=== PATIENT | male | born 1990 | race Caucasian/White ===

== ENCOUNTER 2023-06-05 03:01 | Emergency (ER) | payer OTHER, SELFPAY ==
[2023-06-05] VITALS (7 sets, daily range): BP systolic 127–139; BP diastolic 77–87; BMI 25.4
--- NOTE | 2023-06-05 04:16 | ED.GENMED ---
Addendum entered and electronically signed by Jimmy Vital DO 06/05/23 17:04:
Patient does not want to stay and would prefer to go to another hospital. Patient understands the serious nests of this wound and that it could lead to infection spreading into his pelvis and intestines. Patient is cooperative but would prefer to
go elsewhere. Patient will be discharged on antibiotics.
Original Note:
History of Present Illness
General
Chief Complaint: Male Genito-Urinary Symptoms
Source: patient
Exam Limitations: none
Time Seen by Provider: 06/05/23 03:59
Nursing documentation reviewed up to this point in time: agreed with
Travel History
Have you had any contact with someone who has COVID-19?: No
Do you have any symptoms of coronavirus? Fever > 100 degrees, chills, cough, shortness of breath, sore throat, loss of taste or smell, muscle aches, or headache?: No
History of Present Illness
History of Present Illness:
The patient is a 32-year-old man with a past medical history of IV drug use who denies active IV drug use who reports multiple abscesses on his scrotum. Patient reports that he noticed them 3 days ago. He reports that the 2 that have popped up are
already draining. He reports he is not sure if another one is forming in his left testicle. He denies fevers and chills. He reports minimal pain. He reports he has had a history of an abscess in the past. He denies any penile discharge or
bleeding.
Past History
Past History
ED Past Medical History: Other (Abscess in past)
ED Past Surgical History: Other
Social History
Tobacco: Smoker
Alcohol: None
Drug: Former user
Personal: Other
Living: other
Employment: Other
Family History
Family History: Other
Review of Systems
Review of Systems
Allergies reviewed?: Yes
All Other Systems: ROS reviewed and negative except as documented in HPI and ROS
Constitutional: Reports no symptoms
EENT: Reports no symptoms
Respiratory: Reports no symptoms
Cardiac: Reports no symptoms
ABD/GI: Reports no symptoms
: Reports other
Musculoskeletal: Reports no symptoms
Skin: Reports other
Neurological: Reports no symptoms
Endocrine: Reports no symptoms
Hematologic/Lymphatic: Reports no symptoms
Psychiatric: Reports no symptoms
Phy Exam
Physical Exam
Physical Exam:
Physical Exam
General: no apparent distress, not acutely ill, nontoxic
Neck: supple.
Heart: s1/s2 regular rate and rhythm, no murmur. equal radial pulses.
Lungs: no acute respiratory distress. clear bilaterally
Abdomen: normal bowel sounds. not tender. no CVAT
Neuro: alert and oriented. no focal neurological deficits
Skin: 1.5 cm abscess superior pole of left testicle. Draining abscess posterior left testicle. Scrotum is erythematous and warm to the touch. Appears swollen
Psychiatric: well kept. interactive and cooperative
Extremities: no edema. no calf tenderness. negative homans. good distal pulses
Course
Orders/Labs/Results
Orders:
Orders
06/05/23 04:15
US Scrotum Urgent
Comment:
Reason For Exam: abscess
06/05/23 04:21
Complete Blood Count/With Diff Urgent
Comprehensive Metabolic Panel Urgent
Wound Culture [Wound/Abscess/Other Culture] Urgent
LAURENCE Source: Abscess
Specimen Description:
Date Specimen was Collected: 06/05/23
Time Specimen was Collected: 04:19
Comment: scrotum
06/05/23 06:23
Vancomycin [Vancocin] 2,000 mg 0.9% Sodium Chloride 500 ml [Nss] 500 ml IV NOW
Abnormal Lab Results
06/05/23
04:21
WBC 11.7 H 10^3/uL
(4.8-10.8)
RBC 4.00 L 10^6/uL
(4.70-6.10)
Hgb 12.0 L g/dL
(13.0-18.0)
Hct 34.9 L %
(39.0-52.0)
Absolute Neuts (auto) 8.1 H 10^3/uL
(1.4-6.5)
Absolute Monos (auto) 0.7 H 10^3/uL
(0.1-0.6)
Carbon Dioxide 31 H mmol/L
(22-30)
Creatinine 0.6 L mg/dL
(0.7-1.3)
Glucose 107 H mg/dl
(70-99)
06/05/23 04:21
06/05/23 04:21
Vital Signs
Initial and Last Documented VS:
Initial Vital Signs
Temp Pulse Resp BP Pulse Ox
98.5 F 94 16 127/87 100
06/05/23 03:06 06/05/23 03:06 06/05/23 03:06 06/05/23 03:06 06/05/23 03:06
Last Documented Vital Signs
Temp Pulse Resp BP Pulse Ox
98.5 F 94 16 129/85 98
06/05/23 03:06 06/05/23 03:06 06/05/23 03:06 06/05/23 06:15 06/05/23 05:13
MDM/Problems Addressed
Differential Diagnosis Includes:
Testicle abscesses, testicle cellulitis, deep space infection
MDM/Problems Addressed:
Patient presents with acute abscesses of left testicle
Chronic conditions affecting care:
Given patient has a history of IV drug use in the past he is at increased risk of MRSA infection
*Radiology
Radiology exam reviewed: radiology read reviewed
*Pulse Oximetry
Patient hypoxic: no
*EKG
Interpreted by ED Provider?: NA
*Fryer Line Helper Interpretation
Rate: Fryer Line Helper- N/A
*Critical Care Note
Total Time (30-74mins, 75-104mins- exclusive of procedures): Not Applicable
Data Reviewed
Source: patient
Patient Management
Discussion with other providers: Hospitalist and Other (Dr Dunbar)
Escalation/DeEscalation of care consider admission/obs:
Given extensive swelling and erythema of scrotum, decision made to admit patient for IV antibiotics. Dr. Dunbar from urology notified and agreed to evaluate the patient. He asked that patient please be n.p.o.
ED Attending Note
-
Portions of this chart may have been created with voice recognition software.� Occasional wrong word or��sound alike� substitutions may have occurred due to the inherent limitations of voice recognition software.
Discharge Plan
Departure
Patient Disposition: Admit
Date of Disposition: 06/05/23
Time of Disposition: 06:12
Admit to: Med/Surg
Presentation/result/management discussed w/ accepting MD/DO: Hospitalist
Patient with high blood pressure during this ER visit?: Yes
Condition: Good
Covid-19: Not Applicable
Discharge Problem:
Scrotal wall abscess, Cellulitis of scrotum
Prescriptions:
No Action
No Current Medications
0
Referrals:
NONE,* [Family Provider] -
Interventions
Interventions:
*Risk Screen - Suicide Last Done: 06/05/23 03:06
*General Assessment Last Done: 06/05/23 03:06
*Neglect/Abuse Screening Last Done: 06/05/23 03:06
ED- Fall Risk Assessment Last Done: 06/05/23 03:06
*ED COVID-19 Vaccine History Last Done: 06/05/23 03:06
ED-Male Genitourinary Assessment Last Done: 06/05/23 03:53
Discharge Date and Time
Print Language: SLOVENIAN
[2023-06-05 04:32] LABS: % Basophils 0.8 % (0-2); % Eosinophils 0.2 % (0-6); % Immature Granulocytes 0.3 % (0-0.5); % Lymphocytes 23.2 % (20.5-51.1); % Monocytes 6.2 % (1.7-9.3); % Neutrophils 69.3 % (42.2-75.2); Absolute Basophils 0.1 10^3/uL (0-0.2); Absolute Lymphocytes 2.7 10^3/uL (1.2-3.4); Absolute Monocytes 0.7 10^3/uL (0.1-0.6); Absolute Neutrophils 8.1 10^3/uL (1.4-6.5); Hematocrit 34.9 % (39.0-52.0); Mean Corp Hgb Conc. 34.4 g/dL (33.0-37.0); Mean Corpuscular Volume 87.3 fL (80.0-94.0); Mean Platelet Volume 9.4 fL (7.4-10.4); Nucleated Red Blood Cells % 0 % (-); Platelet Count 310 10^3/uL (130-400); Red Cell Dist. Width 12.5 % (11.5-14.5); White Blood Cell Count 11.7 10^3/uL (4.8-10.8)
[2023-06-05 04:46] LABS: ALT (SGPT) 17 U/L (0-50); AST (SGOT) 24 U/L (17-59); Albumin 3.7 g/dl (3.5-5.0); Alkaline Phosphatase 70 U/L (38-126); Blood Urea Nitrogen 15 mg/dl (9-20); Calcium 8.9 mg/dl (8.4-10.2); Carbon Dioxide 31 mmol/L (22-30); Chloride 102 mmol/L (98-107); Estimated Creatinine Clearance > 125 ml/min; Glucose 107 mg/dl (70-99); Potassium 4.4 mmol/L (3.5-5.1); Sodium 136 mmol/L (135-145); Total Bilirubin 0.2 mg/dl (0.2-1.3); Total Protein 6.5 g/dl (6.3-8.2); eGFR > 60.00
[2023-06-05] MEDS: VANCOCIN 540 MG IV (06:55)
--- NOTE | 2023-06-05 08:01 | CON.MD ---
Consultation - Medical
-
see dictated note
asked for eval for scrotal abscess
it was reported pt has had this prior and ? prior hx of MRSA- he denies
no fever or wbc
on exam- dorsal penile sub implant
left side of scrotum is erythematous with fluctuant draining area at base
i have strongly recommended I+D
pt is biligerent, cursing and bordering on violent
reviewed the risks of nonintervention
given his behavior directed at me at this time- i will see again if requested to do so
--- NOTE | 2023-06-05 08:03 | EDRN ---
Addendum entered by Theodora Vuong RN 06/05/23 08:14:
Update: pt agreed to restart Vancomycin. Dr. Vital to see pt.
Original Note:
Pt was seen by urologist and by admitting MD. Pt was disconnected from IV Vanco to go to the bathroom, became agitated from his interaction with MD and refusing to be reconnected to IV med, states 'I'm about to walk out of here'. Pt refusing to
cooperate with exam, admission, or treatment plan. Cursed at MD. Will follow up with ED attending as to the plan.
--- NOTE | 2023-06-05 11:47 | ED.GENMED ---
History of Present Illness
General
Chief Complaint: Male Genito-Urinary Symptoms
Time Seen by Provider: 06/05/23 03:59
Travel History
Have you had any contact with someone who has COVID-19?: No
Do you have any symptoms of coronavirus? Fever > 100 degrees, chills, cough, shortness of breath, sore throat, loss of taste or smell, muscle aches, or headache?: No
Past History
Past History
ED Past Medical History: Other (Abscess in past)
ED Past Surgical History: Other
Social History
Tobacco: Smoker
Alcohol: None
Drug: Former user
Personal: Other
Living: other
Employment: Other
Family History
Family History: Other
Course
Orders/Labs/Results
Orders:
Orders
06/05/23 04:15
US Scrotum Urgent
Comment:
Reason For Exam: abscess
06/05/23 04:21
Complete Blood Count/With Diff Urgent
Comprehensive Metabolic Panel Urgent
Wound Culture [Wound/Abscess/Other Culture] Urgent
LAURENCE Source: Abscess
Specimen Description:
Date Specimen was Collected: 06/05/23
Time Specimen was Collected: 04:19
Comment: scrotum
06/05/23 06:23
Vancomycin [Vancocin] 2,000 mg 0.9% Sodium Chloride 500 ml [Nss] 500 ml IV NOW
06/05/23 07:48
UROLOGY CONSULT Routine
Consulting Provider: Héctor Dunbar Jr.
Was physician already notified: Yes
Abnormal Lab Results
06/05/23
04:21
WBC 11.7 H 10^3/uL
(4.8-10.8)
RBC 4.00 L 10^6/uL
(4.70-6.10)
Hgb 12.0 L g/dL
(13.0-18.0)
Hct 34.9 L %
(39.0-52.0)
Absolute Neuts (auto) 8.1 H 10^3/uL
(1.4-6.5)
Absolute Monos (auto) 0.7 H 10^3/uL
(0.1-0.6)
Carbon Dioxide 31 H mmol/L
(22-30)
Creatinine 0.6 L mg/dL
(0.7-1.3)
Glucose 107 H mg/dl
(70-99)
06/05/23 04:21
06/05/23 04:21
Vital Signs
Initial and Last Documented VS:
Initial Vital Signs
Temp Pulse Resp BP Pulse Ox
98.5 F 94 16 127/87 100
06/05/23 03:06 06/05/23 03:06 06/05/23 03:06 06/05/23 03:06 06/05/23 03:06
Last Documented Vital Signs
Temp Pulse Resp BP Pulse Ox
98.5 F 89 16 131/87 98
06/05/23 03:06 06/05/23 09:22 06/05/23 09:22 06/05/23 09:22 06/05/23 09:22
Update Note
Update Note:
Patient does not want to stay and would prefer to go to another hospital. Patient understands the serious nests of this wound and that it could lead to infection spreading into his pelvis and intestines. Patient is cooperative but would prefer to
go elsewhere. Patient will be discharged on antibiotics.
ED Attending Note
-
Portions of this chart may have been created with voice recognition software.� Occasional wrong word or��sound alike� substitutions may have occurred due to the inherent limitations of voice recognition software.
Discharge Plan
Departure
Patient Disposition: Home (Routine Discharge)
Date of Disposition: 06/05/23
Time of Disposition: 06:12
Admit to: Med/Surg
Patient with high blood pressure during this ER visit?: Yes
Condition: Good
Covid-19: Not Applicable
Discharge Problem:
Scrotal wall abscess, Cellulitis of scrotum
Instructions: Epididymitis (DC), BLOOD PRESSURE
Prescriptions:
New
doxycycline monohydrate 100 mg capsule
100 mg PO BID Qty: 14 0RF
Referrals:
NONE,* [Family Provider] -
Héctor Dunbar Jr., MD [Active] - Call in 1-3 days for appt
Activity Restrictions/Additional Instructions:
The nature of this is very serious and can be an infection that spreads throughout your penis and scrotum as well as testicles and into the pelvis and abdomen. It is important that you seek more definitive care for possible debridement. You are
being placed on antibiotics only as a stopgap measure and will probably not be sufficient to clear the infection. If you decide to change your mind please return otherwise follow-up with a urologist or another emergency department soon as possible.
Interventions
Interventions:
*Risk Screen - Suicide Last Done: 06/05/23 03:06
*General Assessment Last Done: 06/05/23 03:06
*Neglect/Abuse Screening Last Done: 06/05/23 03:06
ED- Fall Risk Assessment Last Done: 06/05/23 03:06
*ED COVID-19 Vaccine History Last Done: 06/05/23 03:06
ED-Male Genitourinary Assessment Last Done: 06/05/23 03:53
Discharge Date and Time
Print Language: CHILEAN
--- NOTE | 2023-06-05 11:50 | EDRN ---
Spoke to pt who states he wants to leave and get the I&D in a different place. Spoke to hospitalist and Dr. Vital.
--- NOTE | 2023-06-05 12:11 | EDRN ---
Pt is being discharged, this nurse went over patient's follow-up options and antibiotics, strongly advised patient to have drainage done elsewhere or optionally to come back to [place] for that treatment, but not to procrastinate in getting the
I&D. Pt indicated understanding.
== END 2023-06-05 12:13 | disposition home or self-care (01) ==
LOC: EMR 03:01
PROVIDERS: CONSULT PHYSICIAN Specialist; EMERGENCY PHYSICIAN Emergency Medicine
DX: N49.2 Inflammatory disorders of scrotum (principal); F17.200 Nicotine dependence, unspecified, uncomplicated; Z86.14 Personal history of Methicillin resistant Staphylococcus aureus infection
CPT/HCPCS: 99284; 96365; 96366; 76870; 80053; 85025; 87070; 87147; 87186; 87205; 93976